=== PATIENT | female | born 1945 ===

== ENCOUNTER → 2017-01-06 | Day surgery (SDC) | payer MEDICARE, BC, SELFPAY ==
--- NOTE | 2017-01-02 11:02 | Pre-Procedure Note/Attestation ---
Pre-Procedure Note/Attestation Complete Prior to Procedure Planned Procedure: left Procedure Narrative: 1.CATARACT EXTRACTION WITH PHACO AND PC IOL IMPLANTATION, LEFT EYE. 2.LIMBAL RELAXING INCISION (LRI), LEFT EYE. Indications for Procedure Pre-Operative Diagnosis: 1. CATARACT, LEFT EYE. 2.ASTIGMATISM, LEFT EYE. Attestation I attest that I discussed the nature of the procedure; its benefits; risks and complications; and alternatives (and the risks and benefits of such alternatives ), prior to the procedure, with the patient (or the patient's legal insurance account representative). I attest that, if there was a reasonable possibility of needing a blood transfusion, the patient (or the patient's legal insurance account representative) was given the [place] Department of [facility] Services standardized written summary, pursuant to the Fam [place] Blood Safety Act ([place] Health and Safety Code # 1645, as amended). I attest that I re-evaluated the patient just prior to the surgery and that there has been no change in the patient's H&P, except as documented below: LEELEE MARTINEZ Jan 02, 2017 11:02
[~2017-01-06] VITALS: Ht 144.8 cm; Wt 55.8 kg
[2017-01-06] VITALS (9 sets, daily range): BP systolic 116–152; BP diastolic 74–88
[~2017-01-06] MED LIST: ASPIRIN81 MG ORAL; ATORVASTATIN CA20 MG ORAL; Akten 3.5% 1ml Btl ONE; BSS 15ml BTL ONE; BSS 500ml btl ONE; CALCIUM500 M2 PO; COQ1050 MG PO; Carbachol 0.01% Op Soln 1.5ml vial ONE; Dexamethasone 4mg/ml vial ONE; Diclofenac Sod 0.1% Op Soln ONE; DiphenhydrAMINE 50mg/ml Inj IVP PRN; DiphenhydrAMINE 50mg/ml Inj ONE; EPINEPHrine 1mg/1ml Amp ONE; FISH OIL 1,2001 EAC2 PO; Gatifloxacin Opth Solution 0.5% ONE; LOSARTAN POTASS25 MG ORAL; LR 1000ml 1,000 ML IVLG SCH; LR 1000ml ONE; Labetalol 5mg/ml 20ml vial IV PRN; Lidocaine 1% MPF 10mg/ml 5ml ONE; Lidocaine 1% Plain 30 ml INJ ONE; NS Irrig 1000ml ONE; Phenylephrine 10% Opth Soln 5ml ONE; Povidone-Iodine 5% opth solution ONE; Sodium Hyaluronate 10 mg/ml 0.85ml ONE; Sterile Water Irrig 1000ml IRRIG ONE; Tetracaine 0.5% Opth Soln ONE; Tropicamide 1% Opth Soln ONE; VITAMIN D400 INTLU ORAL; acetaZOLAMIDE 125mg tab ORAL ONE; fentaNYL 100 mcg/2 mL IV ONE
[2017-01-06] MEDS: Phenylephrine 10% Opth Soln 5ml LEFT EYE SCH ×3 (05:57→06:27)
[2017-01-06] MEDS: Akten 3.5% 1ml Btl LEFT EYE SCH ×3 (05:57→06:27)
[2017-01-06] MEDS: Tropicamide 1% Opth Soln LEFT EYE SCH ×3 (05:57→06:27)
[2017-01-06] MEDS: Diclofenac Sod 0.1% Op Soln LEFT EYE SCH ×3 (05:57→06:27)
[2017-01-06] MEDS: Gatifloxacin Opth Solution 0.5% LEFT EYE SCH ×3 (06:53→06:58)
--- NOTE | 2017-01-06 07:16 | Anethesia Preoperative Eval ---
Anesthesia Pre-op PMH/ROS General Date of Evaluation: Jan 06, 2017 Anesthesiologist: Gregg ASA Score: ASA 2 Mallampati Score Class I : Soft palate, uvula, fauces, pillars visible Class II: Soft palate, uvula, fauces visible Class III: Soft palate, base of uvula visible Class IV: Only hard plate visible Mallampati Classification: Class II Surgeon: Zeus Diagnosis: Left cataract Surgical Procedure: Left cataract extraction with IOL Anesthesia History: none Family History: no anesthesia problems Allergies: Coded Allergies: MIDAZOLAM (Verified Allergy, Severe, 01/06/17) RESP DEPRESSION CEPHALEXIN (Verified Allergy, Unknown, 01/06/17) CANNOT REMEMBER REACTION CIPROFLOXACIN (Verified Allergy, Unknown, 01/06/17) CANNOT REMEMBER REACTION DICLOFENAC (Verified Allergy, Unknown, 01/06/17) voltaren gel-CANNOT REMEMBER REACTION DONEPEZIL (Verified Allergy, Unknown, 01/06/17) CANNOT REMEMBER REACTION DULOXETINE (Verified Allergy, Unknown, 01/06/17) CANNOT REMEMBER REACTION Past Medical History Cardiovascular: Reports: HTN, other - HLd, Denies: CAD, [place], arrhythmia, valve dz Pulmonary: Denies: COPD, LAUR[place], asthma, other Gastrointestinal/Genitourinary: Denies: CRI, ESRD, GERD, other Neurologic/Psychiatric: Reports: other - migraines, Denies: CVA, TIA, dementia, depression/anxiety Endocrine: Denies: DM, hypothyroidism, other, steroids HEENT: Reports: cataract (L), cataract (R), Denies: [place] (L), [place] (R), glaucoma, other Hematology/Immune: Denies: DVT, anemia, bleeding disorder, other Musculoskeletal/Integumentary: Reports: OA, Denies: DDD, DJD, RA, edema, other PSxH Narrative: lap appy Anesthesia Pre-op Phys. Exam Physician Exam Last Vital Signs Date Time Temp Pulse Resp B/P Pulse Ox O2 Delivery O2 Flow Rate FiO2 01/06/17 06:34 98.2 77 20 146/88 98 Room Air Constitutional: NAD Cardiovascular: RRR Respiratory: CTA Airway Exam Mallampati Score: Class II MO: full ROM: full Anesthesia Pre-op A/P Labs see chart Studies Pre-op Studies: EKG - sb Risk Assessment & Plan Assessment: ASA II Plan: MAC Status Change Before Surgery: No Pre-Antibiotics Drug: N/A WALTER RAMAN M.D. Jan 06, 2017 07:16
--- NOTE | 2017-01-06 07:31 | 48 Hour Post Anesthesia Eval ---
Post Anesthesia Evaluation Procedure: Left cataract extraction with IOL Date of Evaluation: Jan 06, 2017 Blood Pressure Systolic: 149 0: 84 Pulse Rate: 76 Respiratory Rate: 16 O2 Sat by Pulse Oximetry: 99 Airway: patent Nausea: No Vomiting: No Pain Intensity: 0 Hydration Status: adequate Cardiopulmonary Status: at baseline Mental Status/LOC: patient returned to baseline Post-Anesthesia Complications: 0 Follow-up care needed: ready to discharge WALTER RAMAN M.D. Jan 06, 2017 07:31
--- NOTE | 2017-01-06 07:31 | Immediate Post-Op Evaluation ---
Immediate Post-Op Evalulation Immediate Post-Op Evalulation Procedure: Left cataract extraction with IOL Date of Evaluation: Jan 06, 2017 Time of Evaluation: 08:10 IV Fluids: 300 Blood Products: 0 Estimated Blood Loss: 0 Urinary Output: 0 Blood Pressure Systolic: 152 Blood Pressure Diastolic: 85 Pulse Rate: 76 Respiratory Rate: 16 O2 Sat by Pulse Oximetry: 98 Temperature (Fahrenheit): 97.3 Pain Score (1-10): 0 Nausea: No Vomiting: No Complications 0 Patient Status: awake, reacts, patent, none Hydration Status: adequate Drug: N/A WALTER RAMAN M.D. Jan 06, 2017 07:31
--- NOTE | 2017-01-06 08:10 | Brief Operative Note ---
Immediate Post Operative Note Operative Note Chief Complaint: Blurry vision, left eye, difficulty driving and reading Pre-op Diagnosis: 1. CATARACT, LEFT EYE. 2.ASTIGMATISM, LEFT EYE. Procedure: Cataract extraction with phaco and PC IOL implantation, left eye Post-op Diagnosis: same as pre-op Surgeon: Leelee Schulz MD. Correspondence Dictator: None Additional Surgeons: None Anesthesiologist: Dr. Escobedo Anesthesia: MAC Specimen: none Complications: none Condition: stable Estimated Blood Loss: none Drains: none Implant(s) used?: Yes - Multifocal SYMPHONY pc IOL implanted in the left eye without complication LEELEE SCHULZ Jan 06, 2017 08:10
--- NOTE | 2017-01-06 19:15 | Discharge Summary ---
Discharge Summary Discharge Summary Discharge Summary DATE OF ADMISSION:01/06/2017 DATE OF DISCHARGE:01/06/2017 REASON FOR HOSPITALIZATION:Cataract left eye SURGERY PERFORMED:Cataract extraction with phaco and PC IOL implantation, left eye CONDITION IN THE HOSPITAL:The patient tolerated the surgery without complications. DISCHARGE CONDITION: The patient was stable at discharge. DISCHARGE MEDICATIONS: 1. Vigamox eye drops one drop q.i.d, 2. Prednisolone one drop q.i.d, 3.Ilevro one drop qd. POSTOPERATIVE ORDERS: The patient has to rest at home. No bending, No lifting, No watching Television tonight. POSTOPERATIVE FOLLOW UP: The patient will be followed in my office tomorrow morning at 7 o'clock. LEELEE MARTINEZ Jan 06, 2017 19:15
--- NOTE | 2017-01-06 19:33 | Operative Note - PDOC ---
Operative Note Operative Note Operative Report DATE OF OPERATION:01/06/2017 FACILITY: [facility] SURGEON: Dennis Schulz RANCH HAND: None ANESTHESIOLOGIST: Dr. Escobedo ANESTHESIA: Monitored anesthesia care (MAC) PREOPERATIVE DIAGNOSES: 1. Cataract, left eye. 2. Astigmatism, left eye. POSTOPERATIVE DIAGNOSES: 1. Cataract, left eye. 2. Astigmatism, left eye. SURGERY PERFORMED: 1. Cataract extraction with phacoemulsification and posterior chamber intraocular lens implantation in the left eye. 2. Theresa Symphony IOL implantation, left eye. INDICATION FOR SURGERY: The patient is an 71- year-old lady with history of high blood pressure. He has some back pain and osteoarthritis as well. He is taking for Diovan for high blood pressure. Aspirin and Lipitor for hypercholesterolemia. The patient has coronary artery disease. She doesn't smoke doesn't drink and no allergy to medications.She is complaining of blurry vision in the left eye. On examination of the Left eye., the cornea is clear. Anterior chamber is clean and quiet, but is shallow. The pupillary reflex is normal. There is no RAPD. There is 4+ nuclear sclerosis and 2+ cortical cataract. The fundus shows normal optic disc, normal macula, and periphery retina is flat. To improve her vision in the left eye, the cataract has to be removed and posterior chamber intraocular lens has to be implanted. INFORMED CONSENT: The nature of the surgery, risks benefits, alternatives, and potential complications were explained all in detail to the patient. The potential complications including. But not limited to bleeding, infection, posterior capsular rupture,lens subluxation, flat anterior chamber,iris prolapse , uveitis, corneal edema, macular edema, endophthalmitis, retinal detachment, loss of vision and even loss of the eye were all explained in detail to the patient. The patient voiced understanding and accepted all the complications.The alternatives including accommodating lens, multifocal lens, toric lens, and conventional cataract surgery with limbal relaxing incision (LRI ) for treatment of astigmatism were all explained in detail to the patient who voiced understanding. The patient elected to have cataract surgery with insertion of the toric multifocal lens for astigmatism. Then, she signed the consent from,which is in the chart. DESCRIPTION OF SURGERY AND FINDINGS: Following that, the patient was taken to the operation room in a stable condition. Lidocaine gel Akten 3.5% were applied to the conjunctiva of the left eye. Anesthesia was given by the anesthesiologist , Dr. Escobedo. After adequate anesthesia and sedation had been achieved, the left eye was prepped and draped in the usual and sterile fashion for intraocular surgery.Following that, a speculum was placed in the left eye. Following that, before the patient was taken to the operation room, the 180 and 90 meridian of the cornea was marked. In the operation room, using a corneal marker and marking pen, the steep meridian of the cornea was marked. Following that, using a super sharp knife, a clear corneal side port was created. Following that 1% lidocaine without preservative (MPF) was injected into the anterior chamber.Viscoelastic agent Healon was injected into the anterior chamber. Following that, a clear corneal temporal keratotomy was performed with a 2.8 mm keratome. Following that, viscoelastic agent was injected into the anterior chamber again. Following that, Vision blue was injected under the viscoelastic agent to stain the anterior capsule. Following that, a clear fresh viscoelastic agent was injected into the anterior chamber again. Under the viscoelastic agent, an anterior capsulotomy was performed in the fashion of capsulorrhexis beautifully. Following that viscoelastic agent was removed from the anterior chamber. Following that, using a balanced salt solution hydrodissection and hydrodelineation was performed and the nucleus was freed. Following that, the viscoelastic agent was injected into the anterior chamber again to protect the endothelium of the cornea. Following that, using phacoemulsification machine inthe fashion of horizontal chop, the nucleus was removed in toto. Following that, the cortical material was removed from the capsular bag with irrigation aspiration unit and the capsular bag was polished.Following that, the capsular bag was filled with viscoelastic agent. Following that, a+21.0 diopter , ZXT 150 foldable PC IOL Symphony was injected into the capsular bag. Using a [place]ins[place] hook, the lens was manipulated within the proper position.Following that, viscoelastic agent was removed from the anterior and posterior part of the lens.The anterior chamber was filled with balanced salt solution. Following that, the wound was hydrated with balanced salt solution and the wound was checked for leakage. There was no leakage. Following that, the wound was hydrated and the wound was checked for leakage. There was no leakage. Following that, Vigamox eye drops were applied to the conjuctiva of the left eye. The patient tolerated the surgery without complications. At the end of the surgery, the eye was patched with a clear sterile fenestrated shield. Following that, the patient was transferred to the recovery room. In the recovery room, 125mg Diamox was given by mouth stat. Postoperative orders and directions were given to the patient. The patient will be discharged home upon stabilization. The patient will be followed in my office tomorrow morning at 7 o 'clock. MD MICHELLE Echeverria JOHN Jan 06, 2017 19:33
== END | disposition home or self-care (01) ==
LOC: SUR 05:09
DX: H25.12 Age-related nuclear cataract, left eye (principal); H25.012 Cortical age-related cataract, left eye; H52.202 Unspecified astigmatism, left eye; I10 Essential (primary) hypertension; E78.00 Pure hypercholesterolemia, unspecified; M54.42 Lumbago with sciatica, left side; G62.9 Polyneuropathy, unspecified; H93.19 Tinnitus, unspecified ear; R42 Dizziness and giddiness; M54.12 Radiculopathy, cervical region; M79.7 Fibromyalgia; I25.10 Atherosclerotic heart disease of native coronary artery without angina pectoris; M85.80 Other specified disorders of bone density and structure, unspecified site; Z79.82 Long term (current) use of aspirin; Z79.899 Other long term (current) drug therapy; Z88.1 Allergy status to other antibiotic agents; Z88.3 Allergy status to other anti-infective agents; Z88.8 Allergy status to other drugs, medicaments and biological substances
CPT/HCPCS: 66984; J0171; J1100; J1200; J2001; J3010; J7120; V2632; 94003; 94150

== ENCOUNTER → 2017-01-13 | Day surgery (SDC) | payer MEDICARE, BC ==
--- NOTE | 2017-01-12 10:15 | Pre-Procedure Note/Attestation ---
Pre-Procedure Note/Attestation Complete Prior to Procedure Planned Procedure: right Procedure Narrative: 1.CATARACT EXTRACTION WITH PHACO AND PC IOL IMPLANTATION, RIGHT EYE. Indications for Procedure Pre-Operative Diagnosis: 1. CATARACT, RIGHT EYE. Attestation I attest that I discussed the nature of the procedure; its benefits; risks and complications; and alternatives (and the risks and benefits of such alternatives ), prior to the procedure, with the patient (or the patient's legal route sales representative). I attest that, if there was a reasonable possibility of needing a blood transfusion, the patient (or the patient's legal route sales representative) was given the [facility] standardized written summary, pursuant to the Fam [place] Blood Safety Act ([place] Health and Safety Code # 1645, as amended). I attest that I re-evaluated the patient just prior to the surgery and that there has been no change in the patient's H&P, except as documented below: LEELEE MARTINEZ Jan 12, 2017 10:15
[2017-01-13] VITALS (10 sets, daily range): BP systolic 117–147; BP diastolic 66–89
[~2017-01-13] VITALS: Ht 144.8 cm; Wt 55.8 kg
[~2017-01-13] MED LIST changes: -Diclofenac Sod 0.1% Op Soln ONE; +Gatifloxacin Opth Solution 0.5% BOTH EYES SCH; -Gatifloxacin Opth Solution 0.5% ONE; -Lidocaine 1% Plain 30 ml INJ ONE
[2017-01-13] MEDS: Phenylephrine 10% Opth Soln 5ml RIGHT EYE SCH ×3 (05:40→05:59)
[2017-01-13] MEDS: Tropicamide 1% Opth Soln RIGHT EYE SCH ×3 (05:41→05:59)
[2017-01-13] MEDS: Akten 3.5% 1ml Btl RIGHT EYE SCH ×3 (05:41→05:59)
--- NOTE | 2017-01-13 07:18 | Anethesia Preoperative Eval ---
Anesthesia Pre-op PMH/ROS General Date of Evaluation: Jan 13, 2017 Anesthesiologist: Gregg ASA Score: ASA 2 Mallampati Score Class I : Soft palate, uvula, fauces, pillars visible Class II: Soft palate, uvula, fauces visible Class III: Soft palate, base of uvula visible Class IV: Only hard plate visible Mallampati Classification: Class II Surgeon: Zeus Diagnosis: Right cataract Surgical Procedure: Right cataract extraction with IOL Anesthesia History: none Family History: no anesthesia problems Allergies: Coded Allergies: MIDAZOLAM (Verified Allergy, Severe, 01/06/17) RESP DEPRESSION CEPHALEXIN (Verified Allergy, Unknown, 01/06/17) CANNOT REMEMBER REACTION CIPROFLOXACIN (Verified Allergy, Unknown, 01/06/17) CANNOT REMEMBER REACTION DICLOFENAC (Verified Allergy, Unknown, 01/06/17) voltaren gel-CANNOT REMEMBER REACTION DONEPEZIL (Verified Allergy, Unknown, 01/06/17) CANNOT REMEMBER REACTION DULOXETINE (Verified Allergy, Unknown, 01/06/17) CANNOT REMEMBER REACTION Medications: see eMAR Past Medical History Cardiovascular: Reports: HTN, other - HLd, Denies: CAD, [place], arrhythmia, valve dz Pulmonary: Denies: COPD, LAURO, asthma, other Gastrointestinal/Genitourinary: Denies: CRI, ESRD, GERD, other Neurologic/Psychiatric: Reports: other - migraines, Denies: CVA, TIA, dementia, depression/anxiety Endocrine: Denies: DM, hypothyroidism, other, steroids HEENT: Denies: [place] (L), [place] (R), cataract (L), cataract (R), glaucoma, other Hematology/Immune: Denies: DVT, anemia, bleeding disorder, other Musculoskeletal/Integumentary: Reports: OA, Denies: DDD, DJD, RA, edema, other PSxH Narrative: lap appy, left cataract sx Anesthesia Pre-op Phys. Exam Physician Exam Last Vital Signs Date Time Temp Pulse Resp B/P Pulse Ox O2 Delivery O2 Flow Rate FiO2 01/13/17 05:42 97.7 74 18 125/79 98 Room Air Constitutional: NAD Cardiovascular: RRR Respiratory: CTA Airway Exam Mallampati Score: Class II Anesthesia Pre-op A/P Labs see chart Studies Pre-op Studies: EKG - sr Risk Assessment & Plan Assessment: ASA II Plan: MAC Status Change Before Surgery: No Pre-Antibiotics Drug: N/A WALTER RAMAN M.D. Jan 13, 2017 07:18
--- NOTE | 2017-01-13 07:22 | Immediate Post-Op Evaluation ---
Immediate Post-Op Evalulation Immediate Post-Op Evalulation Procedure: Right cataract extraction with IOL Date of Evaluation: Jan 13, 2017 Time of Evaluation: 08:17 IV Fluids: 300 Blood Products: 0 Estimated Blood Loss: 0 Urinary Output: 0 Blood Pressure Systolic: 145 Blood Pressure Diastolic: 98 Pulse Rate: 76 Respiratory Rate: 16 O2 Sat by Pulse Oximetry: 100 Temperature (Fahrenheit): 98.2 Pain Score (1-10): 0 Nausea: No Vomiting: No Complications 0 Patient Status: awake, reacts, patent, none Hydration Status: adequate Drug: N/A WALTER RAMAN M.D. Jan 13, 2017 07:22
--- NOTE | 2017-01-13 07:22 | 48 Hour Post Anesthesia Eval ---
Post Anesthesia Evaluation Procedure: Right cataract extraction with IOL Date of Evaluation: Jan 13, 2017 Blood Pressure Systolic: 132 0: 89 Pulse Rate: 75 Respiratory Rate: 16 O2 Sat by Pulse Oximetry: 99 Airway: patent Nausea: No Vomiting: No Pain Intensity: 0 Hydration Status: adequate Cardiopulmonary Status: at baseline Mental Status/LOC: patient returned to baseline Post-Anesthesia Complications: 0 Follow-up care needed: ready to discharge WALTER RAMAN M.D. Jan 13, 2017 07:22
--- NOTE | 2017-01-13 08:19 | Brief Operative Note ---
Immediate Post Operative Note Operative Note Chief Complaint: Blurry vision, right eye. Difficulty driving and reading Pre-op Diagnosis: 1. Cataract, right eye Procedure: Cataract extraction with phaco and PC IOL implantation, right eye Post-op Diagnosis: same as pre-op Surgeon: Leelee Schulz MD. Photo Producer: None Additional Surgeons: None Anesthesiologist: Dr. Escobedo Anesthesia: MAC Specimen: none Complications: none Condition: stable Estimated Blood Loss: none Drains: none Implant(s) used?: Yes - Moltifocal [id number] multifocal IOL was implanted in the right eye without complication LEELEE SCHULZ Jan 13, 2017 08:19
--- NOTE | 2017-01-13 14:08 | Pre-op HX & Phy Repo 2 SIG ---
DATE OF ADMISSION: 01/13/2017 PRESURGICAL INTERNAL MEDICINE HISTORY AND PHYSICAL: REASON FOR EVALUATION: I was asked by Dr. Dennis Schulz to see this 71-year-old female, who is going for elective surgery on the right eye. The patient has a cataract left eye. Please see Dr. Schulz for H and P. The patient was evaluated. Chart was reviewed. PAST MEDICAL HISTORY: Remarkable for hypertension, degenerative joint disease. No diabetes. No stroke. No respiratory problem. The patient has a history of tumor ____. No anemia. No gastrointestinal bleeding. Denies history of hepatitis. No anemia. No diabetes mellitus. No thyroid problem. PAST SURGICAL HISTORY: Colonoscopy and right eye cataract last week. FAMILY HISTORY: and sister had diabetes mellitus. ALLERGIES: To Keflex, Cymbalta, Cipro, and Aricept. Current Medications: Baby aspirin, vitamin D, fish oil, 02:41, and also losartan for blood pressure. HABITS: No history of tobacco or alcohol use. No street drugs. PHYSICAL EXAMINATION: GENERAL: Alert, well-developed, well-nourished female, no acute distress. BMI is 26.6 kilogram/m2. VITAL SIGNS: Blood pressure 125/79, temperature 97.7, pulse 74 and regular, and O2 saturation 98% on room air. SKIN: Warm and dry. No rashes. No cyanosis. No diaphoresis. HEENT: Head, normocephalic. Ears, clear. Eyes, full description per Dr. Dennis Schulz. Mouth, partial dentures. Tongue is midline, moist. NECK: Supple. No jugular venous distention. Carotids are 2+. Trachea midline. No palpable mass. Trachea midline. CHEST: No deformity or asymmetry. LUNGS: Clear to auscultation and percussion. No rales or rhonchi. HEART: Sinus rhythm. No ectopy. No murmur. No S3 or S4. ABDOMEN: Soft. No palpable mass. No rebound. Liver and spleen not enlarged. EXTREMITIES: Degenerative joint disease in the knee and feet. No cough tenderness. No deformity. GENITOURINARY TRACT: No dysuria. CVA nontender. NEUROLOGIC: No tremor. No nystagmus. ECG, normal sinus rhythm, normal ECG. The patient did not eat or drink from 8 p.m. yesterday. LABORATORY DATA: Pending. IMPRESSION: 1. Cataract, right eye. 2. Hypertension, controlled. 3. Degenerative joint disease in the knee and feet. PLAN: Cataract extraction, right eye with intraocular lens implant per Dr. Dennis Schulz. CONCLUSION: The patient's vital signs stable. ECG normal. The patient did not eat or drink from last night. The patient's condition optimized for surgery. Thank you very much, Dr. Schulz, for privilege to participate in the presurgical care of this interesting patient. Jumana Tellez M.D. DR: LITZY JOB#: [id number] CC:
--- NOTE | 2017-01-14 04:57 | Operative Note - PDOC ---
Operative Note Operative Note Operative Report DATE OF OPERATION: 01/13/2017 FACILITY: [facility] SURGEON: Dennis Schulz MD RADIO TALK SHOW HOST: None ANESTHESIOLOGIST: Dr. Escobedo ANESTHESIA: Monitored anesthesia care (MAC) PREOPERATIVE DIAGNOSES: 1. Cataract, left eye. 2. Astigmatism, left eye. POSTOPERATIVE DIAGNOSES: 1. Cataract, left eye. 2. Astigmatism, left eye. SURGERY PERFORMED: 1. Cataract extraction with phacoemulsification and posteriro chamber intraocular lens implantation in the left eye. 2. Limbal relaxing incision (I.R.I) left. INDICATION FOR SURGERY: The patient is an 71- year-old lady with history of high blood pressure. He has some back pain and osteoarthritis as well. SHe is taking diovan, aspirin and lipitor. The patient has coronary artery disease, She doesn't drink, she doesn't smok. She is allergic to penicillin . Flomax for BPH. Diovan for high blood pressure. Plavix, aspirin and Lipitor for hypercholesterolemia. The patient has coronary artery disease. He underwent coronary angiography with stent in his coronary artery. He doesnt smoke doesnt drink and no allergy to medications. He is complaining of blurry vision in the left eye. On examination of the right eye., the cornea is clear. Anterior chamber is clean and quiet, but is shallow. The pupillary reflex is normal. There is no RAPD. There is 4 nuclear sclerosis and 2 cortical cataract. The fundus shows normal optic disc, normal macula, and periphery retina is flat. To improve his vision int he left eye, the cataract has to be removed and posterior chamber intraocular lens has to be implanted. INFORMED CONSENT: The nature of the surgery, risks benefits, alternatives, and potential complications were explained all in detail to the patient. The potential complications including. But not limited to bleeding, infection, posterior capsular rupture,lens subluxation, flat anterior chamber,iris prolapse , uveitis, corneal edema, macular edema, endophthalmitis, retinal detachment, loss of vision and even loss of the eye were all explained in detail to the patient. The patient voiced understanding and accepted all the complications.The alternatives including accommodating lens, multifocal lens, toric lens, and conventional cataract surgery with limbal relaxing incision (LRI ) for treatment of astigmatism were all explained in detail to the patient who voiced understanding. The patient elected to have cataract surgery with insertion of the multifocal lens and limbal relaxing incision for astigmatism. Then, he signed the consent from,which is in the chart. DESCRIPTION OF SURGERY AND FINDINGS: Following hat, the patient was taken to the operation room in a stable condition. Lidocaine gel Akten 3.5% were applied to the conjunctiva of the left eye. Anesthesia was given by the anesthesiologist , Dr. Yi. After adequate anesthesia and sedation had been achieved, the left eye was prepped and draped in the usual and sterile fashion for intraocular surgery.Following that, a speculum was placed in the left eye. Following that, before the patient was taken to the operation room, the 180 and 90 meridian of the cornea was marked. In the operation room, using a corneal marker and marking pen, the steep meridian of the cornea was marked. Following that, using a ariel knife, two parallel incisions was placed on the steep meridian of the cornea to treat the patients astigmatism. Following that, using a super sharp knife, a clear corneal side port was created. Following that 1% lidocaine without preservative (MPF) was injected into the anterior chamber.Viscoelastic agent Healon was injected into the anterior chamber. Following that, a clear corneal temporal keratotomy was performed with a 2.8 mm keratome. Following that, viscoelastic agent was injected into the anterior chamber again. Following that, Vision blue was injected under the viscoelastic agent to stain the anterior capsule. Following that, a clear fresh viscoelastic agent was injected into the anterior chamber again. Under the viscoelastic agent , an anterior capsulotomy was performed in the fashion of capsulorrhexis beautifully. Following that viscoelastic agent was removed from the anterior chamber. Following that, using a balanced salt solution hydrodissection and hydrodelineation was performed and the nucleus was freed. Following that, the viscoelastic agent was injected into the anterior chamber again to protect the endothelium of the cornea. Following that, using phacoemulsification machine inthe fashion of horizontal chop, the nucleus was removed in toto. Following that, the cortical material was removed from the capsular bag with irrigation aspiration unit and the capsular bag was polished.Following that, the capsular bag was filled with viscoelastic agent. Following that, a+21.0 diopter , ZXR00 foldable PCIOL with serial [id number] was injected into the capsular bag. Using a Sinskey hook, the lens was manipulated within the proper position.Following that, viscoelastic agent was removed from the anterior and posterior part of the lens.The anterior chamber was filled with balanced salt solution. Following that, the wound was hydrated with balanced salt solution and the wound was checked for leakage. There was no leakage. Following that, the wound was hydrated and the wound was checked for leakage. There was no leakage. Following that, Vigamox eye drops were applied to the conjuctiva of the left eye. The patient tolerated the surgery without complications. At the end of the surgery, the eye was patched with a clear sterile fenestrated shield. Following that, the patient was transferred to the recovery room. In the recovery room, 125mg Diamox was given by mouth stat. Postoperative orders and directions were given to the patient. The patient will be discharged home upon stabilization. The patient will be followed in my office tomorrow morning at 7 o 'clock. MD MICHELLE Echeverria JOHN Jan 14, 2017 04:57
--- NOTE | 2017-01-20 16:24 | Discharge Summary ---
Discharge Summary Discharge Summary Discharge Summary DATE OF ADMISSION:01/13/2017 DATE OF DISCHARGE:01/13/2017 REASON FOR HOSPITALIZATION:cataract left eye SURGERY PERFORMED:Cataract extraction with phaco and PC IOL IOL implantation, left eye. CONDITION IN THE HOSPITAL:The patient tolerated the surgery without complications. DISCHARGE CONDITION: The patient was stable at discharge. DISCHARGE MEDICATIONS: 1. Vigamox eye drops one drop q.i.d, 2. Prednisolone one drop q.i.d, 3.Ilevro eye drop one drop q.d. POSTOPERATIVE ORDERS: The patient has to rest at home. No bending, No lifting, No watching Television tonight. POSTOPERATIVE FOLLOW UP: The patient will be followed in my office tomorrow morning at 7 o'clock. LEELEE MARTINEZ Jan 20, 2017 16:24
--- NOTE | 2017-02-15 09:29 | Physician Query ---
PLEASE COMPLETE DOCUMENT BEFORE SIGNING Dear Dr. Schulz Date: 02/15/2017 Wound Care Physician/CDS Name:Cristy Gandhi CCS Exercise your independent professional judgment when responding to the query. Questions asked do not imply a particular answer is desired or expected. We greatly appreciate your clarification on this issue. CLINICAL DOCUMENTATION STATES: The H&P and consent have right eye but the op report has left eye. Date of Operation: 01/13/2017. Please respond to the following question: Is there a diagnosis specific to these symptoms or values? If so please state below. Please indicate the correct eye that cataract extraction with phacoemulsification was performed on? PHYSICIAN RESPONSE: ( ) LEFT ( ) RIGHT Dennis Schulz M.D. Date & Time [facility]
== END | disposition home or self-care (01) ==
LOC: SUR 05:11
DX: H25.11 Age-related nuclear cataract, right eye (principal); H25.011 Cortical age-related cataract, right eye; H52.201 Unspecified astigmatism, right eye; I25.10 Atherosclerotic heart disease of native coronary artery without angina pectoris; Z95.5 Presence of coronary angioplasty implant and graft; I10 Essential (primary) hypertension; M19.90 Unspecified osteoarthritis, unspecified site; E78.5 Hyperlipidemia, unspecified; G43.909 Migraine, unspecified, not intractable, without status migrainosus; Z88.1 Allergy status to other antibiotic agents; Z88.3 Allergy status to other anti-infective agents; Z88.8 Allergy status to other drugs, medicaments and biological substances; Z88.0 Allergy status to penicillin; Z79.82 Long term (current) use of aspirin; Z79.899 Other long term (current) drug therapy; Z90.49 Acquired absence of other specified parts of digestive tract
CPT/HCPCS: 66984; 66999; J0171; J1100; J1200; J3010; J7120; V2632; 94003; 94150